=== PATIENT | female | born 1940 | race African-American/Black ===

== ENCOUNTER 2024-03-07 22:50 | Inpatient (IN) | payer MEDICARE, MEDICAID ==
[~2024-03-07] VITALS: Ht 167.6 cm; Wt 108.9 kg
[2024-03-07 22:30] VITALS: BP 146/76; PULSE 92; RESP 20; TEMP 99.1
[~2024-03-07 22:50] MED LIST: ALEN1TAB5 MT; ALEN70TA79 PO; AM250 PO; AMLO10TA80 PO; ATOR10TA69 PO; BUPR-315 PO; BUSP10TA3 PO; COLC0.6C3 PO; DICL100G58 TP; DOCU-150 PO; DOCU100T PO; DULO60CA64 PO; FAMO20TA8 PO; FLUT15.844 BOTHNSTRLS; GABA800T97 MT; GABA800T97 PO; MELO-106 PO; OXYB-52 PO; OXYB5SYR2 PO; TOPUD PO; TRAZ150T78 MT; TRAZ150T78 PO; tylenol#3 PO
[2024-03-08] MEDS: HYDROCODONE/ACETAMINOPHEN 5/325MG TABLET PO PRN (04:49)
[2024-03-08] MEDS: ACETAMINOPHEN 325MG TABLET PO PRN (04:53)
[2024-03-08 07:00] LABS: HEMATOCRIT. 35.3 % (36.0-48.0); HEMOGLOBIN. 11.8 g/dL (12.0-16.0); MEAN CORPUSCULAR HEMOGLOBIN 30.4 pg (28.0-32.0); MEAN CORPUSCULAR HGB CONC 33.3 g/dL (31.0-37.0); MEAN CORPUSCULAR VOLUME 91.3 fL (81.0-99.0); MEAN PLATELET VOLUME 7.8 fl (7.4-10.4); PLATELET 261 x1000/uL (130-400); RED BLOOD CELL COUNT 3.87 mill/uL (4.2-5.4); RED CELL DISTRIBUTION WIDTH 14.7 % (11.6-14.6); WHITE BLOOD COUNT 9.8 x1000/uL (4.5-11.0)
[2024-03-08 07:15] LABS: CHLORIDE 101 mEq/L (98-107); POTASSIUM 3.2 mEq/L (3.5-5.1); SODIUM 135 mEq/L (136-145)
[2024-03-08 07:16] LABS: CARBON DIOXIDE 25 mEq/L (21-32)
[2024-03-08 07:17] LABS: CALCIUM 9.3 mg/dL (8.7-10.4)
[2024-03-08 07:18] LABS: DIFFERENTIAL COMMENT 1
[2024-03-08 07:21] LABS: CREATININE 0.6 mg/dL (0.6-1.0); GLUCOSE 110 mg/dL (70-105)
[2024-03-08 07:22] LABS: ALANINE AMINOTRANSFERASE 13 IU/L (10-49); ASPARTATE AMINOTRANSFERASE 21 IU/L (<34); UREA NITROGEN BLOOD 24 mg/dL (9-23)
[2024-03-08 07:24] LABS: BILIRUBIN TOTAL 0.4 mg/dL (0.1-1.0); PROTEIN TOTAL 6.4 g/dL (6.0-8.3)
[2024-03-08 07:25] LABS: PREALBUMIN < 5.0 mg/dl (10.0-40.0)
[2024-03-08 08:00] VITALS: BP 147/69; PULSE 80; RESP 19; TEMP 96.4
[2024-03-08] MEDS: BUSPIRONE HCL 10MG TABLET PO SCH (08:23)
[2024-03-08] MEDS: ENOXAPARIN 30MG/0.3ML SYR SUBCUT SCH (08:23)
[2024-03-08] MEDS: FOLIC ACID 1MG TABLET PO SCH (08:23)
[2024-03-08] MEDS: FAMOTIDINE 20MG TABLET PO SCH (08:23)
[2024-03-08] MEDS: DULOXETINE HCL 60MG DR CAPSULE PO SCH (08:24)
[2024-03-08] MEDS: MULTIVITAMINS,THER W-MINERALS TABLET PO SCH (08:24)
[2024-03-08] MEDS: AMLODIPINE 10MG TABLET PO SCH (08:24)
[2024-03-08] MEDS: THIAMINE HCL 100MG TABLET PO SCH (08:24)
[2024-03-08] MEDS: CEFTRIAXONE 1GM/50ML 50 ML IV SCH (08:25)
[2024-03-08 16:19] LABS: PLATELET ESTIMATE NORMAL
[2024-03-08] MEDS: POTASSIUM CHLORIDE 20MEQ TABLET SR PO NR (17:34)
[2024-03-08 20:00] VITALS: BP 141/85; PULSE 72; RESP 19; TEMP 99
[2024-03-08] MEDS: MELATONIN 3MG TABLET PO SCH (21:54)
[2024-03-08] MEDS: ATORVASTATIN CALCIUM 10MG TABLET PO SCH (21:54)
[2024-03-09 07:17] LABS: BASOPHILS % 0.2 % (0.0-2.0); EOSINOPHILS % 0.5 % (0.0-5.0); HEMATOCRIT. 35.4 % (36.0-48.0); HEMOGLOBIN. 11.6 g/dL (12.0-16.0); LYMPHOCYTES % 17.6 % (20.0-50.0); MEAN CORPUSCULAR HEMOGLOBIN 29.7 pg (28.0-32.0); MEAN CORPUSCULAR HGB CONC 32.7 g/dL (31.0-37.0); MEAN CORPUSCULAR VOLUME 90.9 fL (81.0-99.0); MEAN PLATELET VOLUME 8.1 fl (7.4-10.4); MONOCYTES % 14.6 % (2.0-8.0); NEUTROPHILS % 67.1 % (40.0-76.0); PLATELET 327 x1000/uL (130-400); RED BLOOD CELL COUNT 3.89 mill/uL (4.2-5.4); RED CELL DISTRIBUTION WIDTH 14.8 % (11.6-14.6); WHITE BLOOD COUNT 8.6 x1000/uL (4.5-11.0)
[2024-03-09 07:23] LABS: CHLORIDE 102 mEq/L (98-107); POTASSIUM 3.9 mEq/L (3.5-5.1); SODIUM 136 mEq/L (136-145)
[2024-03-09 07:25] LABS: CALCIUM 9.3 mg/dL (8.7-10.4); CARBON DIOXIDE 26 mEq/L (21-32)
[2024-03-09 07:29] LABS: IRON 24 ug/dL (50-170)
[2024-03-09 07:30] LABS: CREATININE 0.6 mg/dL (0.6-1.0); GLUCOSE 101 mg/dL (70-105); PROTEIN TOTAL 6.2 g/dL (6.0-8.3); UREA NITROGEN BLOOD 19 mg/dL (9-23)
[2024-03-09 07:31] LABS: ALANINE AMINOTRANSFERASE 16 IU/L (10-49); ALBUMIN 3.9 g/dL (3.2-4.8); ASPARTATE AMINOTRANSFERASE 22 IU/L (<34)
[2024-03-09 07:32] LABS: BILIRUBIN TOTAL 0.4 mg/dL (0.1-1.0); THYROID STIMULATING HORMONE 0.75 uIU/mL (0.55-4.78); VITAMIN B12 SERUM 1898 pg/mL (211-911)
[2024-03-09 07:33] LABS: FOLIC ACID (FOLATE) SERUM 14.41 ng/mL (>5.38)
[2024-03-09 07:34] LABS: FERRITIN 290 ng/mL (10-291)
[2024-03-09 07:37] LABS: TOTAL IRON BINDING CAPACITY > 670 ug/dl (250-425)
[2024-03-09 08:00] VITALS: BP 151/76; PULSE 88; RESP 18; TEMP 97.3
[2024-03-09] MEDS ORDERED: NALOXONE HCL 0.4MG/ML VIAL IV PRN (12:45)
[2024-03-09] MEDS ORDERED: FERROUS SULFATE 325MG TABLET PO SCH (13:00)
[2024-03-09] MEDS: FERROUS SULFATE 325MG TABLET PO SCH (13:23)
[2024-03-09] MEDS ORDERED: IBUPROFEN 400MG TABLET PO PRN (19:15)
[2024-03-09 20:00] VITALS: BP 130/70; PULSE 80; RESP 18; TEMP 98.2
[2024-03-09] MEDS: PREGABALIN 75MG CAPSULE PO SCH (20:57)
[2024-03-09] MEDS: TRAZODONE HCL 50MG TABLET PO SCH (20:57)
[2024-03-10 07:18] LABS: LACTATE DEHYDROGENASE 207 IU/L (120-246)
[2024-03-10 08:00] VITALS: BP 117/72; PULSE 87; RESP 18; TEMP 97.4
[2024-03-10] MEDS: BUPROPION HCL 150MG TABLET XL 24HR PO SCH (09:00)
[2024-03-10] MEDS: HYDROXYCHLOROQUINE SULFATE 200MG TABLET PO SCH (09:00)
[2024-03-10] MEDS: CALCIUM CARBONATE 500MG TABLET CHEW PO SCH (09:00)
[2024-03-10] MEDS ORDERED: CHOLECALCIFEROL (D3) 1000 UNIT TABLET PO SCH (09:00)
[2024-03-10] MEDS: PREDNISONE 5MG TABLET PO SCH (09:00)
[2024-03-10] MEDS: COLCHICINE 0.6MG TABLET PO SCH (09:00)
[2024-03-10] MEDS: ASCORBIC ACID 500 MG TABLET PO SCH (09:00)
[2024-03-10] MEDS: FLUTICASONE PROPIONATE 50MCG/SPRAY BOTTLE BOTHNSTRLS SCH (09:00)
[2024-03-10] MEDS: ERGOCALCIFEROL 50000UNITS CAPSULE PO SCH (09:15)
[2024-03-10 10:21] LABS: BASOPHILS % 0.4 % (0.0-2.0); EOSINOPHILS % 0.3 % (0.0-5.0); HEMATOCRIT. 36.1 % (36.0-48.0); HEMOGLOBIN. 11.9 g/dL (12.0-16.0); LYMPHOCYTES % 15.1 % (20.0-50.0); MEAN CORPUSCULAR HEMOGLOBIN 30.5 pg (28.0-32.0); MEAN CORPUSCULAR HGB CONC 33.1 g/dL (31.0-37.0); MEAN CORPUSCULAR VOLUME 92.2 fL (81.0-99.0); MEAN PLATELET VOLUME 7.2 fl (7.4-10.4); MONOCYTES % 14.9 % (2.0-8.0); NEUTROPHILS % 69.3 % (40.0-76.0); PLATELET 358 x1000/uL (130-400); RED BLOOD CELL COUNT 3.91 mill/uL (4.2-5.4); WHITE BLOOD COUNT 8.7 x1000/uL (4.5-11.0)
[2024-03-10 10:31] LABS: CARBON DIOXIDE 25 mEq/L (21-32); CHLORIDE 102 mEq/L (98-107); POTASSIUM 3.2 mEq/L (3.5-5.1); SODIUM 136 mEq/L (136-145)
[2024-03-10 10:32] LABS: CALCIUM 9.3 mg/dL (8.7-10.4); PROTHROMBIN TIME 11.2 sec (9.6-11.0)
[2024-03-10 10:36] LABS: CREATININE 0.6 mg/dL (0.6-1.0); GLUCOSE 136 mg/dL (70-105)
[2024-03-10 10:37] LABS: LDL CHOLESTEROL 62 mg/dL (5-100); TRIGLYCERIDE 87 mg/dL (0-150); UREA NITROGEN BLOOD 15 mg/dL (9-23)
[2024-03-10 10:39] LABS: CHOLESTEROL 129 mg/dL (<200); HDL CHOLESTEROL 46 mg/dL (>65)
[2024-03-10] MEDS: POTASSIUM CHLORIDE 20MEQ TABLET SR PO NR (11:46)
[2024-03-10 12:26] VITALS: BP 123/73; PULSE 79; TEMP 97.8; O2SAT 97
== END 2024-03-10 12:57 | disposition short-term general hospital (02) | DRG 562 ==
PROVIDERS: ADMIT Physical Medicine & Rehabilitation Spinal Cord Injury Medicine; ATTEND Internal Medicine
DX: S82.51XA Displaced fracture of medial malleolus of right tibia, initial encounter for closed fracture (principal); G93.41 Metabolic encephalopathy; K56.0 Paralytic ileus; N39.0 Urinary tract infection, site not specified; M17.0 Bilateral primary osteoarthritis of knee; R29.6 Repeated falls; E66.01 Morbid (severe) obesity due to excess calories; R41.89 Other symptoms and signs involving cognitive functions and awareness; R53.81 Other malaise; W18.39XA Other fall on same level, initial encounter; F03.90 Unspecified dementia, unspecified severity, without behavioral disturbance, psychotic disturbance, mood disturbance, and anxiety; E55.9 Vitamin D deficiency, unspecified; M85.80 Other specified disorders of bone density and structure, unspecified site; D64.9 Anemia, unspecified; E78.00 Pure hypercholesterolemia, unspecified; Z96.651 Presence of right artificial knee joint; R53.1 Weakness; M06.9 Rheumatoid arthritis, unspecified; I10 Essential (primary) hypertension; Z68.39 Body mass index [BMI] 39.0-39.9, adult; Z91.81 History of falling; Y93.89 Activity, other specified; Y92.89 Other specified places as the place of occurrence of the external cause; Y99.8 Other external cause status
CPT/HCPCS: 36415; 70496; 70498; 74018; 76705; 80048; 80053; 80061; 82306; 82607; 82728; 82746; 82962; 83036; 83540; 83550; 83615; 84134; 84443; 85025; 85044; 92523; 92610; 97110; 97162; 97166; 97530; 97535; J0696; J1650; J7512